=== PATIENT | male | born 1955 | race Caucasian/White ===

== ENCOUNTER → 2023-12-18 07:18 | Outpatient (REF) | payer MEDICARE, OTHER, SELFPAY ==
[2023-12-18 08:10] LABS: % Eosinophils 1.9 % (0-6); % Immature Granulocytes 0.2 % (0-0.5); % Lymphocytes 29.2 % (20.5-51.1); % Monocytes 11.1 % (1.7-9.3); % Neutrophils 56.6 % (42.2-75.2); Absolute Basophils 0.1 10^3/uL (0-0.2); Absolute Eosinophils 0.1 10^3/uL (0-0.7); Absolute Lymphocytes 1.5 10^3/uL (1.2-3.4); Absolute Monocytes 0.6 10^3/uL (0.1-0.6); Absolute Neutrophils 2.9 10^3/uL (1.4-6.5); Hematocrit 42.6 % (39.0-52.0); Hemoglobin 14.8 g/dL (13.0-18.0); Mean Corp Hgb Conc. 34.7 g/dL (33.0-37.0); Mean Corpuscular Hgb 32.2 pg (27.0-31.0); Mean Corpuscular Volume 92.6 fL (80.0-94.0); Nucleated Red Blood Cells % 0 % (-); Platelet Count 239 10^3/uL (130-400); Red Cell Dist. Width 13.3 % (11.5-14.5); White Blood Cell Count 5.1 10^3/uL (4.8-10.8)
[2023-12-18 09:30] LABS: Blood Urea Nitrogen 17 mg/dl (9-20); Calcium 9.5 mg/dl (8.4-10.2); Carbon Dioxide 26 mmol/L (22-30); Chloride 102 mmol/L (98-107); Glucose 92 mg/dl (70-99); Potassium 4.5 mmol/L (3.5-5.1); Sodium 137 mmol/L (135-145); eGFR > 60.00
== END ==
LOC: REG 07:18
PROVIDERS: ATTENDING PHYSICIAN Specialist; FAMILY PHYSICIAN Family Medicine
DX: M17.12 Unilateral primary osteoarthritis, left knee (principal); Z01.818 Encounter for other preprocedural examination
CPT/HCPCS: 36415; 80048; 85025

== ENCOUNTER 2024-01-17 11:45 | Emergency (ER) | payer MEDICARE, OTHER, SELFPAY ==
[2024-01-17 12:05] VITALS: BP 144/87
--- NOTE | 2024-01-17 12:59 | ED.GENMED ---
History of Present Illness
General
Chief Complaint: Skin Surface Trauma
Source: patient
Exam Limitations: none
Time Seen by Provider: 01/17/24 12:35
Nursing documentation reviewed up to this point in time: agreed with
Travel History
Have you had any contact with someone who has COVID-19?: No
Do you have any symptoms of coronavirus? Fever > 100 degrees, chills, cough, shortness of breath, sore throat, loss of taste or smell, muscle aches, or headache?: No
History of Present Illness
History of Present Illness:
69 y/o M with h/o HTN, HLD
just had knee replacement 2 weeks ago which is still somewhat swollen left sided
here after accdientally getting cut by a glass that fell from a cabinet when he was loading the bottle washer, left anterior ankle
he was wearing a compression stocking and that the piece of glass was sticking out of the stocking when he pulled it off, it came out
small laceration was bleeding a lot
then his put 3 bandaids on and it stopped bleeding
tetanus is outdated
no pain, numbness, tingling
wound is small, no suspected glass residual
Past History
Past History
ED Past Medical History: HTN and Hypercholesterolemia
ED Past Surgical History: Orthopedic
Social History
Tobacco: Non-smoker
Alcohol: None
Drug: None
Personal:
Living: with family
Review of Systems
Review of Systems
Allergies reviewed?: Yes
All Other Systems: Not applicable
Phy Exam
Physical Exam
Physical Exam:
GENERAL: Alert , in no apparent distress, comfortable at rest
HEAD: NCAT
CV: 2+ DP PULSES left
NEUROLOGICAL: Alert and oriented, no focal neuro deficits, , 5/5 strength, sensation intact
SKIN: Warm and dry,
long vertical left anterior knee incision closed with stephani, well appearing
small irregular shaped0.25 cm laceration anterior left ankle int he center
no bleeding
pt has bruising to the knee and thigh region and some distal in the medial foot because of dependent drainage;
MUSCULOSKELETAL:left ankle painless ROM
small laceartion , no bleeding
no fb
irrigated and closed
PSYCH: Normal and appropriate interaction.
Course
Orders/Labs/Results
Orders:
Orders
01/17/24 12:59
Tetanus/Diphth/Acelpertussis [Adacel] 0.5 ml IM .ONCE ONE
Vital Signs
Initial and Last Documented VS:
Initial Vital Signs
Temp Pulse Resp BP Pulse Ox
98.2 F 91 18 144/87 97
01/17/24 12:05 01/17/24 12:05 01/17/24 12:05 01/17/24 12:05 01/17/24 12:05
Last Documented Vital Signs
Temp Pulse Resp BP Pulse Ox
98.2 F 91 18 144/87 97
01/17/24 12:05 01/17/24 12:05 01/17/24 12:05 01/17/24 12:05 01/17/24 12:05
MDM/Problems Addressed
Differential Diagnosis Includes:
laceration, abrasion
MDM/Problems Addressed:
69 y/o m with recent L TKR 2 weeks ago and some residual bruising and edema
here with small laceratino to left anterior ankle afer dropping a glass on his foot today that broke
bleeding now controlled but was more significant at home
tetanus updated here
small laceration to anterior left ankle, no active bleeding, partially closed, not deep
no fb
irrigated and dressed after sterristrips and glue
dry dressing applied
d/c home
*Critical Care Note
Total Time (30-74mins, 75-104mins- exclusive of procedures): Not Applicable
ED Attending Note
-
Portions of this chart may have been created with voice recognition software.� Occasional wrong word or��sound alike� substitutions may have occurred due to the inherent limitations of voice recognition software.
Discharge Plan
Departure
Patient Disposition: Home (Routine Discharge)
Date of Disposition: 01/17/24
Time of Disposition: 13:12
Patient with high blood pressure during this ER visit?: No
Condition: Fair
Covid-19: Not Applicable
Discharge Problem:
Laceration of left leg
Instructions: Laceration Repair With Glue (DC)
Activity Restrictions/Additional Instructions:
Your wound was repaired with glue and Steri-Strips. Keep it clean and dry for 48 hours if possible. After that you can get it wet normally like you would in the shower and the Steri-Strips will peel up and fall off eventually. Watch for signs of
infection and return as needed. Your tetanus was updated today.
Interventions
Interventions:
*Risk Screen - Suicide Last Done: 01/17/24 12:05
*General Assessment Last Done: 01/17/24 12:05
*Neglect/Abuse Screening Last Done: 01/17/24 12:05
*ED COVID-19 Vaccine History Last Done: 01/17/24 12:05
*Nursing Disposition Last Done: 01/17/24 13:34
ED-Skin Assessment Last Done: 01/17/24 12:55
Discharge Date and Time
Discharge Date/Time: 01/17/24 13:35
Print Language: BARBADIAN
[2024-01-17] MEDS: ADACEL 0.5 ML IM (13:25)
== END 2024-01-17 13:35 | disposition home or self-care (01) ==
LOC: EMR 11:45
PROVIDERS: EMERGENCY PHYSICIAN Emergency Medicine; FAMILY PHYSICIAN Family Medicine
DX: S81.812A Laceration without foreign body, left lower leg, initial encounter (principal); W25.XXXA Contact with sharp glass, initial encounter; Y93.89 Activity, other specified; I10 Essential (primary) hypertension; E78.00 Pure hypercholesterolemia, unspecified; Z98.890 Other specified postprocedural states; Z96.653 Presence of artificial knee joint, bilateral
CPT/HCPCS: 99282; 90471; 90715

== ENCOUNTER 2024-10-06 10:20 | Emergency (ER) | payer MEDICARE, OTHER, SELFPAY ==
--- NOTE | 2024-10-06 10:28 | ED.GENMED ---
History of Present Illness
General
Chief Complaint: CODE
Time Seen by Provider: 10/06/24 10:22
History of Present Illness
History of Present Illness:
TIME OF INITIAL ENCOUNTER: 10:20 AM
HPI: Patient presents as a cardiac arrest. He was found [place] neighborhood. Details are limited however I am told by EMS that the patient had been complaining of shortness of breath recently. The patient arrives with evidence
of head trauma and has a c-collar in place. Provides no history. EMS gave several rounds of epi and patient has been in [facility] for the preceding 27 minutes.
EXAM:
GENERAL: Unresponsive
HEENT: Eyes open, pupils fixed and dilated, some corneals
HEAD: There is a large laceration above the right eyebrow
CERVICAL SPINE: C-collar in place
CARDIOVASCULAR: Absent cardiac activity, poor perfusion
PULMONARY: No spontaneous respiratory effort, the patient was intubated prior to arrival in breath sounds are slightly diminished on the left�I did pull the tube back 1 cm
ABDOMEN: Soft with no peritoneal signs
NEUROLOGIC: Unresponsive, absent corneals, no response to pain
PSYCHIATRIC: Untestable
EXTREMITIES: No obvious traumatic deformity
SKIN: Mottled skin
NUMBER AND COMPLEXITY OF PROBLEMS ADDRESSED AT THE ENCOUNTER
� Chronic conditions affecting care: High blood pressure, hyperlipidemia
� Acute Exacerbation and/or Progression of Chronic Illness: This is an acute problem
� Differential Diagnosis includes: Cardiac arrest, it is unclear if the arrest happened before or after head trauma
AMOUNT AND/OR COMPLEXITY OF DATA TO BE REVIEWED AND ANALYZED
� I performed an independent evaluation of and my interpretation is:
EKG:
CT:
X-rays:
Laboratory Studies:
Other:
� Review of other/old records: The patient was seen here with a left leg laceration in 2023; the patient had a unremarkable stress test in 2019
� Clinical information was obtained by an independent historian: EMS
� Prescriptions/Medications Considered but not given:
� Further testing considered but not performed:
RISK OF COMPLICATIONS AND/OR MORBIDITY OR MORTALITY OF PATIENT MANAGEMENT
� Social determinants of health affecting care: Lives at home
� Discussion with other providers:
� Escalation of care including admission/observation vs risk of discharge considered: The patient was seen immediately upon arrival. He was already intubated by EMS prior to arrival. He was in PEA for 27 minutes prior to
arrival. We gave 1 additional epi and gave chest compressions for several additional minutes. He was pronounced at 10:25 AM.
ANY OTHER UPDATES:
I notified about the patient's in person
I notified medical assisting program director and she will review the chart
I also notified PMD's office
Completed registry
Past History
Past History
ED Past Medical History: HTN and Hypercholesterolemia
ED Past Surgical History: Orthopedic
Social History
Tobacco: Non-smoker
Alcohol: None
Drug: None
Personal:
Living: with family
Phy Exam
Physical Exam
Physical Exam:
See HPI
Course
Orders/Labs/Results
Orders:
Orders
10/06/24 10:21
EPINEPHrine [Adrenalin 1 mg/10 ml] 1 mg .ROUTE .STK-MED ONE
*Critical Care Note
Total Time (30-74mins, 75-104mins- exclusive of procedures): Not Applicable
ED Attending Note
-
Portions of this chart may have been created with voice recognition software.� Occasional wrong word or��sound alike� substitutions may have occurred due to the inherent limitations of voice recognition software.
Discharge Plan
Departure
Patient Disposition:
Date of Disposition: 10/06/24
Time of Disposition: 10:27
Discharge Problem:
Cardiac arrest
Interventions
Interventions:
*Risk Screen - Suicide Last Done: 10/06/24 10:28
*General Assessment Last Done: 10/06/24 10:28
*Neglect/Abuse Screening Last Done: 10/06/24 10:28
ED- Fall Risk Assessment Last Done: 10/06/24 11:24
*ED COVID-19 Vaccine History Last Done: 10/06/24 10:28
*Nursing Disposition Last Done: 10/06/24 11:11
ED- Cardiac Assessment Last Done: 10/06/24 10:28
ED- Pulmonary Assessment Last Done: 10/06/24 10:28
Discharge Date and Time
Print Language: RWANDAN
--- NOTE | 2024-10-06 11:23 | CHAP ---
Emotional and spiritual support provided for Jayda, Mr. Scott's . Prayers of commendation shared.
== END 2024-10-06 12:21 | disposition expired ==
LOC: EMR 10:20
PROVIDERS: EMERGENCY PHYSICIAN Emergency Medicine
DX: I46.9 Cardiac arrest, cause unspecified (principal); I10 Essential (primary) hypertension; E78.00 Pure hypercholesterolemia, unspecified; S01.111A Laceration without foreign body of right eyelid and periocular area, initial encounter; X58.XXXA Exposure to other specified factors, initial encounter
CPT/HCPCS: 92950; 99285